=== PATIENT | female | born 1945 | race Caucasian/White ===

== ENCOUNTER 2018-02-08 13:31 | Inpatient (IN) | payer MEDICAID ==
[2018-02-08 14:11] LABS: ADD MAN DIFF? NO
[2018-02-08 14:13] LABS: BASOPHILS % 0.4 % (0.0-2.0); EOSINOPHILS # 0.1 10^3/ul (0.0-0.5); HEMATOCRIT 36.1 % (37.0-47.0); HEMOGLOBIN 11.1 g/dl (12.0-16.0); LYMPHOCYTES # 2.6 10^3/ul (0.8-2.9); LYMPHOCYTES % 23.9 % (15.0-51.0); MEAN CORPUSCULAR HEMOGLOBIN 24.9 pg (29.0-33.0); MEAN CORPUSCULAR HGB CONC 30.7 g/dl (32.0-37.0); MEAN CORPUSCULAR VOLUME 80.9 fl (82.0-101.0); MEAN PLATELET VOLUME 10.4 fl (7.4-10.4); MONOCYTE # 0.8 10^3/ul (0.3-0.9); MONOCYTES % 7.9 % (0.0-11.0); NEUTROPHIL # 7.1 10^3/ul (1.6-7.5); NEUTROPHILS % 66.3 % (39.0-77.0); PLATELET COUNT 323 10^3/UL (140-415); RED BLOOD COUNT 4.46 10^6/ul (4.20-5.40); RED CELL DISTRIBUTION WIDTH 16.5 % (11.5-14.5)
[2018-02-08 14:13] LABS: WHITE BLOOD COUNT 10.7 10^3/ul (4.8-10.8)
[2018-02-08 14:36] LABS: ALANINE AMINOTRANSFERASE 22 IU/L (13-69); ALBUMIN 4.5 g/dl (3.3-4.9); ALBUMIN/GLOBULIN RATIO 1.12; ALKALINE PHOSPHATASE 87 IU/L (42-121); ANION GAP 21 (8-16); ASPARTATE AMINO TRANSFERASE 18 IU/L (15-46); BILIRUBIN,INDIRECT 0.3 mg/dl (0-1.1); BILIRUBIN,TOTAL 0.3 mg/dl (0.2-1.3); BLOOD UREA NITROGEN 27 mg/dl (7-20); CARBON DIOXIDE 27 mmol/L (21-31); CHLORIDE 99 mmol/L (97-110); CREATININE 1.38 mg/dl (0.44-1.00); GLUCOSE 109 mg/dl (70-220); LIPASE 281 U/L (23-300); PHOSPHORUS 7.4 mg/dl (2.5-4.9); POTASSIUM 4.5 mmol/L (3.5-5.1); SODIUM 142 mmol/L (135-144); TOTAL PROTEIN 8.5 g/dl (6.1-8.1)
[2018-02-08 14:36] LABS: MAGNESIUM 1.8 mg/dl (1.7-2.5)
[2018-02-08 14:40] LABS: CALCIUM 5.7 mg/dl (8.4-10.2)
[2018-02-08 14:42] LABS: ADD UMIC YES; UR ASCORBIC ACID NEGATIVE (NEGATIVE); UR BACTERIA FEW /HPF (NONE SEEN); UR BILIRUBIN (Dip) NEGATIVE (NEGATIVE); UR BLOOD (Dip) 1+ mg/dL (NEGATIVE); UR CLARITY CLEAR (CLEAR); UR COLOR YELLOW (YELLOW); UR GLUCOSE (Dip) NEGATIVE (NEGATIVE); UR KETONES (Dip) NEGATIVE (NEGATIVE); UR LEUKOCYTE ESTERASE (Dip) NEGATIVE Leu/ul (NEGATIVE); UR NITRITE (Dip) NEGATIVE (NEGATIVE); UR NONSQUAMOUS EPITHELIAL CELL 1 /HPF (NONE SEEN); UR RBC 1 /HPF (0-5); UR SPECIFIC GRAVITY (Dip) 1.011 (1.003-1.030); UR SQUAMOUS EPITHELIAL CELL FEW /HPF (FEW); UR TOTAL PROTEIN (Dip) NEGATIVE (NEGATIVE); UR UROBILINOGEN (Dip) NEGATIVE (NEGATIVE); UR WBC 1 /HPF (0-5)
[2018-02-08 16:41] LABS: IONIZED CALCIUM 0.7 mmol/L (1.1-1.4)
[2018-02-08] MEDS ORDERED: CA CHLORIDE 10% 10 ML SYRINGE IV (18:00)
[2018-02-08] MEDS: SOD CHLORIDE 0.9% 1,000 ML IV (18:25)
[2018-02-08] MEDS ORDERED: NACL 0.9% 3 ML SYG IV (18:30)
[2018-02-08] MEDS ORDERED: DOCUSATE SODIUM 100 MG CAP PO (18:30)
[2018-02-08] MEDS ORDERED: BISACODYL (EC) 5 MG TAB PO (18:30)
[2018-02-08] MEDS ORDERED: LORAZEPAM 0.5 MG TAB PO (18:30)
[2018-02-08] MEDS ORDERED: MAGNESIUM HYDROXIDE 30ML CUP PO (18:30)
[2018-02-08] MEDS ORDERED: HYDROCODONE/APAP (5/325) TAB PO (18:30)
[2018-02-08] MEDS: CALCIUM GLUCONATE 10% 2 GM in DEXTROSE 5% 100 ML IVPB (19:38)
[2018-02-08] MEDS: MAGNESIUM OXIDE 400 MG TAB PO (19:38)
[2018-02-09] MEDS: hydrALAzine 20 MG INJ IV ×3 (01:44→19:43)
[2018-02-09 06:10] LABS: ADD MAN DIFF? NO
[2018-02-09] MEDS: LEVOTHYROXINE 100 MCG TAB PO (06:18)
[2018-02-09 06:21] LABS: BASOPHIL # 0.1 10^3/ul (0.0-0.1); BASOPHILS % 0.4 % (0.0-2.0); EOSINOPHILS # 0.1 10^3/ul (0.0-0.5); EOSINOPHILS % 0.4 % (0.0-7.0); HEMATOCRIT 32.6 % (37.0-47.0); HEMOGLOBIN 10.2 g/dl (12.0-16.0); LYMPHOCYTES # 1.5 10^3/ul (0.8-2.9); LYMPHOCYTES % 12.6 % (15.0-51.0); MEAN CORPUSCULAR HEMOGLOBIN 25.1 pg (29.0-33.0); MEAN CORPUSCULAR HGB CONC 31.3 g/dl (32.0-37.0); MEAN CORPUSCULAR VOLUME 80.3 fl (82.0-101.0); MEAN PLATELET VOLUME 10.9 fl (7.4-10.4); MONOCYTES % 8.4 % (0.0-11.0); NEUTROPHIL # 9.2 10^3/ul (1.6-7.5); NEUTROPHILS % 77.8 % (39.0-77.0); PLATELET COUNT 300 10^3/UL (140-415); RED BLOOD COUNT 4.06 10^6/ul (4.20-5.40); RED CELL DISTRIBUTION WIDTH 16.4 % (11.5-14.5)
[2018-02-09 06:21] LABS: WHITE BLOOD COUNT 11.8 10^3/ul (4.8-10.8)
[2018-02-09 06:46] LABS: ALANINE AMINOTRANSFERASE 22 IU/L (13-69); ALBUMIN/GLOBULIN RATIO 1.17; ALKALINE PHOSPHATASE 77 IU/L (42-121); ASPARTATE AMINO TRANSFERASE 15 IU/L (15-46); BILIRUBIN,INDIRECT 0.1 mg/dl (0-1.1); BILIRUBIN,TOTAL 0.1 mg/dl (0.2-1.3); BLOOD UREA NITROGEN 24 mg/dl (7-20); CARBON DIOXIDE 29 mmol/L (21-31); CHLORIDE 99 mmol/L (97-110); CREATININE 1.18 mg/dl (0.44-1.00); GLUCOSE 104 mg/dl (70-220); MAGNESIUM 1.9 mg/dl (1.7-2.5); SODIUM 143 mmol/L (135-144); TOTAL PROTEIN 7.4 g/dl (6.1-8.1)
[2018-02-09 06:50] LABS: ANION GAP 19 (8-16); POTASSIUM 3.8 mmol/L (3.5-5.1)
[2018-02-09 06:58] LABS: CALCIUM 5.9 mg/dl (8.4-10.2)
[2018-02-09 09:48] LABS: IONIZED CALCIUM 0.7 mmol/L (1.1-1.4)
[2018-02-09] MEDS: morphine 2 MG INJ IV (09:50)
[2018-02-09] MEDS: CALCIUM GLUCONATE 10% 2 GM in DEXTROSE 5% 100 ML IVPB ×2 (09:50→15:24)
[2018-02-09] MEDS: AMLODIPINE 10 MG TAB PO (11:32)
[2018-02-09] MEDS: ACETAMINOPHEN 325 MG TAB PO ×2 (11:32→19:42)
[2018-02-09 12:45] LABS: CALCIUM 6.5 mg/dl (8.4-10.2)
[2018-02-09] MEDS: CALCIUM ACETATE 667 MG CAP GTB ×2 (12:53→17:11)
[2018-02-09] MEDS: CALCIUM CARBONATE 1.25 GM TAB GTB ×2 (12:53→20:50)
[2018-02-09] MEDS: SOD CHLORIDE 0.9% 1,000 ML IV ×2 (15:24→23:01)
[2018-02-09] MEDS: AMLODIPINE 5 MG TAB PO (19:43)
[2018-02-09 19:52] LABS: ADD UMIC NO; UR ASCORBIC ACID NEGATIVE (NEGATIVE); UR BILIRUBIN (Dip) NEGATIVE (NEGATIVE); UR BLOOD (Dip) NEGATIVE (NEGATIVE); UR CLARITY CLEAR (CLEAR); UR COLOR YELLOW (YELLOW); UR GLUCOSE (Dip) NEGATIVE (NEGATIVE); UR KETONES (Dip) TRACE mg/dL (NEGATIVE); UR LEUKOCYTE ESTERASE (Dip) NEGATIVE Leu/ul (NEGATIVE); UR NITRITE (Dip) NEGATIVE (NEGATIVE); UR TOTAL PROTEIN (Dip) NEGATIVE (NEGATIVE); UR UROBILINOGEN (Dip) NEGATIVE (NEGATIVE)
[2018-02-10] MEDS: hydrALAzine 20 MG INJ IV ×2 (03:41→20:30)
[2018-02-10] MEDS: LEVOTHYROXINE 100 MCG TAB PO (06:07)
[2018-02-10] MEDS: SOD CHLORIDE 0.9% 1,000 ML IV (06:41)
[2018-02-10 08:44] LABS: ADD MAN DIFF? NO
[2018-02-10 08:46] LABS: BASOPHIL # 0.1 10^3/ul (0.0-0.1); BASOPHILS % 0.4 % (0.0-2.0); EOSINOPHILS % 0.1 % (0.0-7.0); HEMATOCRIT 34.8 % (37.0-47.0); HEMOGLOBIN 10.7 g/dl (12.0-16.0); LYMPHOCYTES # 1.2 10^3/ul (0.8-2.9); LYMPHOCYTES % 9.3 % (15.0-51.0); MEAN CORPUSCULAR HEMOGLOBIN 24.9 pg (29.0-33.0); MEAN CORPUSCULAR HGB CONC 30.7 g/dl (32.0-37.0); MEAN CORPUSCULAR VOLUME 81.1 fl (82.0-101.0); MEAN PLATELET VOLUME 11.1 fl (7.4-10.4); MONOCYTE # 0.8 10^3/ul (0.3-0.9); MONOCYTES % 6.3 % (0.0-11.0); NEUTROPHIL # 11.1 10^3/ul (1.6-7.5); NEUTROPHILS % 82.9 % (39.0-77.0); PLATELET COUNT 336 10^3/UL (140-415); RED BLOOD COUNT 4.29 10^6/ul (4.20-5.40); RED CELL DISTRIBUTION WIDTH 16.7 % (11.5-14.5)
[2018-02-10 08:46] LABS: WHITE BLOOD COUNT 13.4 10^3/ul (4.8-10.8)
[2018-02-10 09:11] LABS: ALANINE AMINOTRANSFERASE 18 IU/L (13-69); ALBUMIN 4.1 g/dl (3.3-4.9); ALKALINE PHOSPHATASE 83 IU/L (42-121); ANION GAP 20 (8-16); ASPARTATE AMINO TRANSFERASE 14 IU/L (15-46); BILIRUBIN,INDIRECT 0.3 mg/dl (0-1.1); BILIRUBIN,TOTAL 0.3 mg/dl (0.2-1.3); BLOOD UREA NITROGEN 13 mg/dl (7-20); CALCIUM 7.4 mg/dl (8.4-10.2); CARBON DIOXIDE 26 mmol/L (21-31); CHLORIDE 97 mmol/L (97-110); CREATININE 0.87 mg/dl (0.44-1.00); GLUCOSE 124 mg/dl (70-220); PHOSPHORUS 5.6 mg/dl (2.5-4.9); POTASSIUM 3.8 mmol/L (3.5-5.1); SODIUM 139 mmol/L (135-144); TOTAL PROTEIN 7.5 g/dl (6.1-8.1)
[2018-02-10 09:16] LABS: MAGNESIUM 1.5 mg/dl (1.7-2.5)
[2018-02-10] MEDS: CALCIUM ACETATE 667 MG CAP GTB ×3 (09:43→17:24)
[2018-02-10] MEDS: CALCIUM CARBONATE 1.25 GM TAB GTB ×2 (09:43→20:29)
[2018-02-10] MEDS: AMLODIPINE 10 MG TAB PO (09:43)
[2018-02-10] MEDS: LACTATED RINGER'S 1,000 ML IV (11:08)
[2018-02-10] MEDS: MAGNESIUM SULFATE 2 GM/50 ML 50 ML IVPB (11:08)
[2018-02-10] MEDS: ONDANSETRON 4 MG INJ IV (11:09)
[2018-02-10] MEDS ORDERED: morphine LIQ (10 MG/5 ML) CUP PO (15:23)
[2018-02-11] MEDS: LEVOTHYROXINE 100 MCG TAB PO (06:13)
[2018-02-11 07:04] LABS: ADD MAN DIFF? NO
[2018-02-11 07:08] LABS: WHITE BLOOD COUNT 12.6 10^3/ul (4.8-10.8)
[2018-02-11 07:08] LABS: BASOPHILS % 0.2 % (0.0-2.0); EOSINOPHILS # 0.1 10^3/ul (0.0-0.5); EOSINOPHILS % 0.4 % (0.0-7.0); HEMOGLOBIN 9.7 g/dl (12.0-16.0); LYMPHOCYTES # 1.5 10^3/ul (0.8-2.9); LYMPHOCYTES % 12.3 % (15.0-51.0); MEAN CORPUSCULAR HEMOGLOBIN 25.5 pg (29.0-33.0); MEAN CORPUSCULAR HGB CONC 31.3 g/dl (32.0-37.0); MEAN CORPUSCULAR VOLUME 81.6 fl (82.0-101.0); MEAN PLATELET VOLUME 10.7 fl (7.4-10.4); MONOCYTE # 0.9 10^3/ul (0.3-0.9); MONOCYTES % 7.5 % (0.0-11.0); NEUTROPHIL # 9.9 10^3/ul (1.6-7.5); NEUTROPHILS % 79.2 % (39.0-77.0); PLATELET COUNT 301 10^3/UL (140-415); RED CELL DISTRIBUTION WIDTH 16.7 % (11.5-14.5)
[2018-02-11 07:50] LABS: ALANINE AMINOTRANSFERASE 21 IU/L (13-69); ALBUMIN 3.7 g/dl (3.3-4.9); ALBUMIN/GLOBULIN RATIO 1.15; ALKALINE PHOSPHATASE 68 IU/L (42-121); ANION GAP 14 (8-16); ASPARTATE AMINO TRANSFERASE 14 IU/L (15-46); BILIRUBIN,INDIRECT 0.3 mg/dl (0-1.1); BILIRUBIN,TOTAL 0.3 mg/dl (0.2-1.3); BLOOD UREA NITROGEN 17 mg/dl (7-20); CARBON DIOXIDE 32 mmol/L (21-31); CHLORIDE 96 mmol/L (97-110); CREATININE 1.05 mg/dl (0.44-1.00); GLUCOSE 104 mg/dl (70-220); MAGNESIUM 2.1 mg/dl (1.7-2.5); PHOSPHORUS 5.1 mg/dl (2.5-4.9); POTASSIUM 4.3 mmol/L (3.5-5.1); SODIUM 138 mmol/L (135-144); TOTAL PROTEIN 6.9 g/dl (6.1-8.1)
[2018-02-11] MEDS: CALCITRIOL 0.25 MCG CAP PO (08:59)
[2018-02-11] MEDS: CALCIUM CARBONATE 1.25 GM TAB PO ×3 (09:00→21:00)
[2018-02-11] MEDS: CALCIUM ACETATE 667 MG CAP GTB ×3 (09:00→17:26)
[2018-02-11] MEDS: AMLODIPINE 10 MG TAB PO (09:01)
[2018-02-11 19:32] LABS: PTH CALCIUM 6.2 mg/dL (8.6-10.4); PTH CALCIUM 6.7 mg/dL (8.6-10.4)
[2018-02-12] MEDS: ACETAMINOPHEN 325 MG TAB PO (00:36)
[2018-02-12 05:48] LABS: ADD MAN DIFF? NO
[2018-02-12 05:54] LABS: BASOPHILS % 0.3 % (0.0-2.0); EOSINOPHILS # 0.1 10^3/ul (0.0-0.5); EOSINOPHILS % 0.8 % (0.0-7.0); HEMATOCRIT 29.2 % (37.0-47.0); HEMOGLOBIN 9.1 g/dl (12.0-16.0); LYMPHOCYTES % 15.3 % (15.0-51.0); MEAN CORPUSCULAR HEMOGLOBIN 25.5 pg (29.0-33.0); MEAN CORPUSCULAR HGB CONC 31.2 g/dl (32.0-37.0); MEAN CORPUSCULAR VOLUME 81.8 fl (82.0-101.0); MEAN PLATELET VOLUME 10.7 fl (7.4-10.4); MONOCYTE # 1.2 10^3/ul (0.3-0.9); MONOCYTES % 9.3 % (0.0-11.0); NEUTROPHIL # 9.6 10^3/ul (1.6-7.5); NEUTROPHILS % 73.8 % (39.0-77.0); PLATELET COUNT 279 10^3/UL (140-415); RED BLOOD COUNT 3.57 10^6/ul (4.20-5.40); RED CELL DISTRIBUTION WIDTH 16.2 % (11.5-14.5)
[2018-02-12] MEDS: LEVOTHYROXINE 100 MCG TAB PO (06:17)
[2018-02-12 06:20] LABS: ANION GAP 15 (8-16); BLOOD UREA NITROGEN 17 mg/dl (7-20); CALCIUM 7.2 mg/dl (8.4-10.2); CARBON DIOXIDE 32 mmol/L (21-31); CHLORIDE 95 mmol/L (97-110); CREATININE 0.97 mg/dl (0.44-1.00); GLUCOSE 102 mg/dl (70-220); MAGNESIUM 1.9 mg/dl (1.7-2.5); PHOSPHORUS 5.5 mg/dl (2.5-4.9); POTASSIUM 4.2 mmol/L (3.5-5.1); SODIUM 138 mmol/L (135-144)
[2018-02-12 09:06] LABS: PTH INTACT 7 pg/mL (14-64); PTH INTACT 9 pg/mL (14-64)
[2018-02-12] MEDS: AMLODIPINE 10 MG TAB PO (09:51)
[2018-02-12] MEDS: CALCIUM ACETATE 667 MG CAP GTB ×3 (09:51→17:56)
[2018-02-12] MEDS: CALCITRIOL 0.25 MCG CAP PO (09:52)
[2018-02-12] MEDS: CALCIUM CARBONATE 1.25 GM TAB PO ×3 (09:52→20:46)
[2018-02-12] MEDS: HYDROCHLOROTHIAZIDE 12.5 MG CAP PO (16:31)
[2018-02-12] MEDS: ERGOCALCIFEROL 50,000 UNIT CAP PO (16:31)
[2018-02-12] MEDS: CALCITRIOL 1 MCG INJ IV (16:32)
[2018-02-12 18:51] LABS: PTH CALCIUM 7.2 mg/dL (8.6-10.4)
[2018-02-12] MEDS: LABETALOL HCL 20MG INJ IV (21:49)
[2018-02-13] MEDS: LEVOTHYROXINE 100 MCG TAB PO (06:12)
[2018-02-13 07:24] LABS: ADD MAN DIFF? NO
[2018-02-13 07:27] LABS: BASOPHILS % 0.3 % (0.0-2.0); EOSINOPHILS # 0.2 10^3/ul (0.0-0.5); EOSINOPHILS % 1.3 % (0.0-7.0); HEMATOCRIT 32.1 % (37.0-47.0); HEMOGLOBIN 10.1 g/dl (12.0-16.0); LYMPHOCYTES # 1.7 10^3/ul (0.8-2.9); LYMPHOCYTES % 13.7 % (15.0-51.0); MEAN CORPUSCULAR HEMOGLOBIN 25.5 pg (29.0-33.0); MEAN CORPUSCULAR HGB CONC 31.5 g/dl (32.0-37.0); MEAN CORPUSCULAR VOLUME 81.1 fl (82.0-101.0); MEAN PLATELET VOLUME 11.2 fl (7.4-10.4); MONOCYTE # 0.9 10^3/ul (0.3-0.9); MONOCYTES % 7.4 % (0.0-11.0); NEUTROPHIL # 9.4 10^3/ul (1.6-7.5); NEUTROPHILS % 76.7 % (39.0-77.0); PLATELET COUNT 271 10^3/UL (140-415); RED BLOOD COUNT 3.96 10^6/ul (4.20-5.40); RED CELL DISTRIBUTION WIDTH 16.2 % (11.5-14.5)
[2018-02-13 07:27] LABS: WHITE BLOOD COUNT 12.3 10^3/ul (4.8-10.8)
[2018-02-13 07:46] LABS: IRON 20 ug/dl (35-150)
[2018-02-13 07:47] LABS: MAGNESIUM 1.7 mg/dl (1.7-2.5)
[2018-02-13 07:47] LABS: PHOSPHORUS 5.6 mg/dl (2.5-4.9)
[2018-02-13 07:49] LABS: ALBUMIN 3.9 g/dl (3.3-4.9); ANION GAP 16 (8-16); BLOOD UREA NITROGEN 17 mg/dl (7-20); CALCIUM 7.9 mg/dl (8.4-10.2); CARBON DIOXIDE 30 mmol/L (21-31); CHLORIDE 97 mmol/L (97-110); CREATININE 0.89 mg/dl (0.44-1.00); GLUCOSE 105 mg/dl (70-220); PHOSPHORUS 5.6 mg/dl (2.5-4.9); POTASSIUM 4.2 mmol/L (3.5-5.1); SODIUM 139 mmol/L (135-144)
[2018-02-13 08:00] LABS: % IRON SATURATION 6 % SAT (22-52); TOTAL IRON BINDING CAPACITY 328 ug/dl (241-421)
[2018-02-13 08:22] LABS: FERRITIN 31.7 ng/ml (11.1-264.0)
[2018-02-13] MEDS: AMLODIPINE 10 MG TAB PO (09:21)
[2018-02-13] MEDS: HYDROCHLOROTHIAZIDE 12.5 MG CAP PO (09:21)
[2018-02-13] MEDS: CALCIUM ACETATE 667 MG CAP GTB ×2 (09:21→12:51)
[2018-02-13] MEDS: CALCIUM CARBONATE 1.25 GM TAB PO ×2 (09:21→12:51)
[2018-02-13] MEDS: MAGNESIUM SULFATE 2 GM/50 ML 50 ML IVPB ×2 (09:22→12:51)
[2018-02-13] MEDS: CALCITRIOL 0.25 MCG CAP PO (09:22)
[2018-02-13 13:13] LABS: PTH INTACT 7 pg/mL (14-64)
[2018-02-13] MEDS ORDERED: SOD FERRIC GLUC COMPLX 125 MG in SOD CHLORIDE 0.9% 100 ML IVPB (17:00)
== END 2018-02-13 16:21 | disposition home or self-care (01) | DRG 641 ==
LOC: E/R 13:31 → MS4 18:28
DX: E83.51 Hypocalcemia (principal); N17.9 Acute kidney failure, unspecified; I45.81 Long QT syndrome; I10 Essential (primary) hypertension; E03.9 Hypothyroidism, unspecified
CPT/HCPCS: 36415; 71045; 76536; 80048; 80053; 80069; 81001; 81003; 82306; 82310; 82330; 82607; 82652; 82728; 83540; 83690; 83735; 83970; 84100; 84443; 85025; 93005; 96374; 99285-25

== ENCOUNTER 2018-07-29 08:14 | Day surgery (SDC) | payer OTHER, MEDICAID ==
[2018-07-29] MEDS: CYCLOPENTOLATE 2% 2 ML OPH LEFT EYE (08:59)
[2018-07-29] MEDS: PHENYLephrine 10% 5 ML OPH LEFT EYE (08:59)
[2018-07-29] MEDS: MOXIFLOXACIN 0.5% 3 ML OPH LEFT EYE (08:59)
[2018-07-29] MEDS: NEPAFENAC 0.1% 3 ML OPH LEFT EYE (08:59)
[2018-07-29] MEDS ORDERED: LIDOCAINE 1% (MPF) 10 ML INJ (10:55)
[2018-07-29] MEDS: LIDOCAINE 1% (MPF) 10 ML INJ INJ (11:10)
[2018-07-29] MEDS ORDERED: PROPOFOL 20 ML (11:21)
[2018-07-29] MEDS ORDERED: LIDOCAINE 2% (SDV) 5 ML INJ (11:21)
[2018-07-29] MEDS ORDERED: hydrALAzine 20 MG INJ IV (11:30)
[2018-07-29] MEDS ORDERED: OXYCODONE/ACETAMINOPHEN (5/325) TAB PO (11:30)
[2018-07-29] MEDS ORDERED: LABETALOL HCL 20MG INJ IV (11:30)
[2018-07-29] MEDS ORDERED: ALBUTEROL 0.083% (NEB) 2.5 MG/3 ML AMP HHN (11:30)
[2018-07-29] MEDS ORDERED: FENTAnyl 50 MCG/ML VIAL IV (11:30)
[2018-07-29] MEDS ORDERED: ACETAMINOPHEN 500 MG TAB PO (11:30)
[2018-07-29] MEDS ORDERED: ACETAMINOPHEN 325 MG TAB PO (11:30)
[2018-07-29] MEDS ORDERED: DIPHENHYDRAMINE 50 MG INJ IV (11:30)
[2018-07-29] MEDS ORDERED: ONDANSETRON 4 MG INJ IV (11:30)
[2018-07-29] MEDS ORDERED: FENTAnyl 50 MCG/ML VIAL (12:27)
== END 2018-07-29 14:18 | disposition home or self-care (01) ==
LOC: SDS 08:14
DX: H25.12 Age-related nuclear cataract, left eye (principal); I10 Essential (primary) hypertension; E03.9 Hypothyroidism, unspecified
CPT/HCPCS: 66984

== ENCOUNTER 2019-02-26 05:22 | Day surgery (SDC) | payer OTHER ==
[2019-02-26] MEDS ORDERED: MOXIFLOXACIN 0.5% 3 ML OPH OPER (06:00)
[2019-02-26] MEDS: CYCLOPENTOLATE 2% 2 ML OPH OPER (06:11)
[2019-02-26] MEDS: MOXIFLOXACIN 0.5% 3 ML OPH OPER (06:11)
[2019-02-26] MEDS: NEPAFENAC 0.1% 3 ML OPH OPER (06:12)
[2019-02-26] MEDS: PHENYLephrine 10% 5 ML OPH OPER (06:12)
[2019-02-26] MEDS ORDERED: EPINEPHrine 1 MG INJ (06:36)
[2019-02-26] MEDS ORDERED: LIDOCAINE 1% (MPF) 10 ML INJ (06:36)
[2019-02-26] MEDS ORDERED: TIMOLOL MALEATE/PF 0.5% OCCUDOSE (0.3 ML) (06:36)
[2019-02-26] MEDS ORDERED: NA BICARB 50 MEQ/50 ML VIAL (06:53)
[2019-02-26] MEDS ORDERED: LIDOCAINE 2% (SDV) 5 ML INJ ×2 (06:54→07:54)
[2019-02-26] MEDS: LIDOCAINE 1% (MPF) 10 ML INJ INJ (07:15)
[2019-02-26] MEDS ORDERED: MIDAZOLAM 1 MG/ML 2 ML INJ (07:33)
[2019-02-26] MEDS ORDERED: FENTAnyl 50 MCG/ML VIAL (07:34)
[2019-02-26] MEDS ORDERED: PROPOFOL 20 ML (07:54)
[2019-02-26] MEDS: CARBACHOL 0.01% 1.5 ML OPH INJ RIGHT EYE (08:07)
[2019-02-26] MEDS: TIMOLOL 0.5% 5 ML OPH RIGHT EYE (08:08)
[2019-02-26] MEDS ORDERED: FENTAnyl 50 MCG/ML VIAL IV (08:30)
[2019-02-26] MEDS ORDERED: OXYCODONE/ACETAMINOPHEN (5/325) TAB PO (08:30)
[2019-02-26] MEDS ORDERED: HYDROmorphONE 1 MG/5 ML IV SYRINGE IV (08:30)
[2019-02-26] MEDS ORDERED: LABETALOL HCL 20MG INJ IV (08:30)
[2019-02-26] MEDS ORDERED: ONDANSETRON 4 MG INJ IV (08:30)
== END 2019-02-26 09:37 | disposition home or self-care (01) ==
LOC: SDS 05:22
DX: H25.11 Age-related nuclear cataract, right eye (principal); I10 Essential (primary) hypertension; E03.9 Hypothyroidism, unspecified
CPT/HCPCS: 66984